=== PATIENT | male | born 1980 | race Caucasian/White ===

== ENCOUNTER 2017-09-10 22:44 | Emergency (ER) | payer OTHER ==
[~2017-09-10] VITALS: Ht 188 cm; Wt 77.1 kg
[2017-09-10 23:23] VITALS: BP 141/86
[2017-09-10] MEDS ORDERED: GABA300C PO (23:30)
[2017-09-10] MEDS ORDERED: BACL10TA4 PO (23:30)
[2017-09-10] MEDS ORDERED: ACET-5636 PO (23:30)
[2017-09-10] MEDS ORDERED: LISI5TAB18 PO (23:31)
--- NOTE | 2017-09-10 23:35 | NUR ---
TO ER BED 8
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
[2017-09-10 23:58] LABS: HEMATOCRIT 41.7 % (36-52); HEMOGLOBIN 13.7 g/dL (12.0-18.0); MEAN CORPUSCULAR HEMOGLOBIN 30 pg (27-31); MEAN CORPUSCULAR HGB CONC 33 g/dL (33-37); MEAN CORPUSCULAR VOLUME 90 fL (80-94); PLATELET COUNT (AUTO) 297 K/uL (140-450); RED BLOOD CELL COUNT(AUTO) 4.65 MIL/uL (4.20-6.10); RED CELL DISTRIBUTION WIDTH 12.8 % (11.6-13.7); WHITE BLOOD COUNT (AUTO) 5.8 K/uL (4.8-10.8)
--- NOTE | 2017-09-11 00:05 | NUR ---
# 14 FR Urinary catheter inserted utilizing sterile technique. Immediate return of clear abbi 500 ml urine noted. Urine sample collected and sent to lab. Pt tolerated procedure well.
[2017-09-11 00:09] LABS: ANION GAP 7.3 (8-16); CARBON DIOXIDE 33.5 mmol/L (21-32); CREATININE 1.1 mg/dL (0.7-1.3); POTASSIUM 3.8 mmol/L (3.5-5.1)
[2017-09-11 00:15] LABS: ALBUMIN 3.4 g/dL (3.4-5.0); TOTAL BILIRUBIN 0.2 mg/dL (0.0-1.0)
[2017-09-11 00:16] LABS: EOSINOPHILS % (MANUAL) 11 % (0-4); LYMPHOCYTES % (MANUAL) 29 % (20-46); MONOCYTES % (MANUAL) 11 % (5-12)
[2017-09-11 00:34] LABS: APPEARANCE,URINE CLEAR (CLEAR); BILIRUBIN,URINE NEGATIVE (NEGATIVE); BLOOD, URINE NEGATIVE (NEGATIVE); COLOR,URINE YELLOW (YELLOW); LEUKOCYTE ESTERASE ,URINE NEGATIVE (NEGATIVE); NITRITE, URINE NEGATIVE (NEGATIVE); UGLUCOSE NEGATIVE (NEGATIVE)
[2017-09-11 00:45] LABS: RBC,URINE 0-5 (RARE) /HPF (0-5); WBC,URINE 0-5 (RARE) /HPF (0-5); YEAST,URINE Moderate /HPF (None Seen)
[2017-09-11 01:20] VITALS: BP 138/79
--- NOTE | 2017-09-11 01:21 | NUR ---
Patient discharged with v/s stable. Written and verbal after care instructions given and explained. Patient alert, oriented and verbalized understanding of instructions. Wheel Chair Assisted with to car. All questions addressed prior to discharge. ID band removed. Patient advised to follow up with PMD. Rx of MAG CITRATE BID/PRN, BISACODYL 10MG SUPP DAILY/PRN given. Patient educated on indication of medication including possible reaction and side effects. Opportunity to ask questions provided and answered.
== END 2017-09-11 01:20 | disposition home or self-care (01) ==
LOC: MED 22:44
DX: K59.00 Constipation, unspecified (principal)
CPT/HCPCS: 36415; 74176; 80053; 81001; 85025; 87086; 93005; 99285; C1758

== ENCOUNTER 2018-01-13 16:14 | Emergency (ER) | payer OTHER ==
[~2018-01-13] VITALS: Ht 188 cm; Wt 74.8 kg
[~2018-01-13 16:14] MED LIST: ACET-5636 PO; BACL10TA4 PO; GABA300C PO; LISI5TAB18 PO
[2018-01-13 16:15] VITALS: BP 115/81
[2018-01-13] MEDS ORDERED: HYDROcodone/APAP 10/325 MG 1 TAB TAB PO STA (16:36)
[2018-01-13] MEDS ORDERED: KETOROLAC 30 MG/ML VIAL IM ONE (16:40)
[2018-01-13] MEDS ORDERED: GABAPENTIN 300 MG CAP PO ONE (17:35)
[2018-01-13] MEDS ORDERED: ACETAMINOPHEN 325 MG TAB PO ONE (17:35)
[2018-01-13] MEDS ORDERED: BACLOFEN 10 MG TAB PO STA (17:58)
[2018-01-13 18:20] LABS: BASOPHILS # (AUTO) 0.4 K/uL (0.00-0.22); EOSINOPHILS # (AUTO) 0.5 K/uL (0-0.4); HEMATOCRIT 46.1 % (36-52); HEMOGLOBIN 15.2 g/dL (12.0-18.0); LYMPHOCYTES # (AUTO) 1.4 K/uL (2.0-11.5); MEAN CORPUSCULAR HEMOGLOBIN 30 pg (27-31); MEAN CORPUSCULAR HGB CONC 33 g/dL (33-37); MEAN CORPUSCULAR VOLUME 90 fL (80-94); MONOCYTES # (AUTO) 0.5 K/uL (0.8-1.0); NEUTROPHILS # (AUTO) 5.3 K/uL (1.8-7.7); PLATELET COUNT (AUTO) 270 K/uL (140-450); RED BLOOD CELL COUNT(AUTO) 5.13 MIL/uL (4.20-6.10); RED CELL DISTRIBUTION WIDTH 13.7 % (11.6-13.7); WHITE BLOOD COUNT (AUTO) 8.1 K/uL (4.8-10.8)
[2018-01-13 18:22] LABS: BILIRUBIN,URINE NEGATIVE (NEGATIVE); BLOOD, URINE TRACE-L (NEGATIVE); LEUKOCYTE ESTERASE ,URINE NEGATIVE (NEGATIVE); NITRITE, URINE POSITIVE (NEGATIVE); UGLUCOSE NEGATIVE (NEGATIVE)
[2018-01-13 18:23] LABS: ANION GAP 14.5 (8-16); CARBON DIOXIDE 27.4 mmol/L (21-32); CREATININE 0.9 mg/dL (0.7-1.3); POTASSIUM 3.9 mmol/L (3.5-5.1)
[2018-01-13 18:27] LABS: APPEARANCE,URINE CLOUDY (CLEAR); COLOR,URINE AMBER (YELLOW)
[2018-01-13 18:29] LABS: ALBUMIN 3.9 g/dL (3.4-5.0); TOTAL BILIRUBIN 0.3 mg/dL (0.0-1.0)
[2018-01-13 18:31] LABS: BARBITURATE, URINE POS. ng/ml (NEG <=200); BENZODIAZEPINE, URINE POS. ng/mL (NEG <=200); CANNABINOID, URINE POS. ng/mL (NEG <=50); COCAINE, URINE NEG. ng/mL (NEG <=300); OPIATE, URINE POS. ng/mL (NEG <=2000); PHENCYCLIDINE SCREEN,URINE NEG. ng/mL (NEG <=25)
[2018-01-13 18:51] LABS: RBC,URINE 0-5 (RARE) /HPF (0-5); WBC,URINE 0-5 (RARE) /HPF (0-5)
[2018-01-13 19:05] VITALS: BP 134/75
[2018-01-14] MEDS ORDERED: BACLOFEN 10 MG TAB PO SCH (09:00)
== END 2018-01-13 19:04 | disposition home or self-care (01) ==
LOC: MED 16:14
DX: F19.10 Other psychoactive substance abuse, uncomplicated (principal); G89.29 Other chronic pain; J45.909 Unspecified asthma, uncomplicated
CPT/HCPCS: 36415; 80053; 80305; 81001; 85025; 85651; 96372; 99284; J1885